=== PATIENT | female | born 1950 | race Caucasian/White ===

== ENCOUNTER 2023-03-18 06:09 | Emergency (ER) | payer MEDICARE, OTHER ==
[~2023-03-18] VITALS: Ht 162.6 cm; Wt 59.0 kg
[2023-03-18 07:50] LABS: BASOPHILS ABSOLUTE AUTO 0.05 K/mm3 (0.00-0.23); BASOPHILS PERCENT AUTO 0 % (0-2); EOSINOPHILS ABSOLUTE AUTO 0.04 K/mm3 (0.00-0.68); EOSINOPHILS PERCENT AUTO 0 % (0-6); Hematocrit 30.4 % (33.0-51.0); Hemoglobin 9.7 g/dL (11.5-16.0); IMMATURE GRAN ABSOLUTE AUTO 0.06 K/mm3 (0.00-0.10); IMMATURE GRAN PERCENT AUTO 0 % (0-1); LYMPHOCYTES ABSOLUTE AUTO 1.17 K/mm3 (0.84-5.20); LYMPHOCYTES PERCENT AUTO 9 % (21-46); MONOCYTES ABSOLUTE AUTO 0.84 K/mm3 (0.16-1.47); MONOCYTES PERCENT AUTO 6 % (4-13); Mean Corpuscular HGB 31.1 pg (26.0-34.0); Mean Corpuscular HGB Conc 31.9 g/dL (31.5-36.5); Mean Corpuscular Volume 97 fL (80-100); Mean Platelet Volume 10.4 fL (9.1-12.4); NEUTROPHILS ABSOLUTE AUTO 11.29 K/mm3 (1.96-9.15); NEUTROPHILS PERCENT AUTO 84 % (41-73); Platelet Count 299 K/mm3 (150-400); RDW Standard Deviation 46.2 fL (35.1-46.3); Red Blood Cell Count 3.12 M/mm3 (3.80-5.20); White Blood Cell Count 13.45 K/mm3 (4.00-11.30)
[2023-03-18 08:04] LABS: Bun/Creatinine Ratio 23.9 (12.0-20.0); Calcium, Blood 8.5 mg/dL (8.5-10.1); Creatinine, Blood 1.09 mg/dL (0.40-1.00); Potassium, Blood 5.9 mmol/L (3.5-5.5)
[2023-03-18 11:37] VITALS: BP 117/70
== END 2023-03-18 11:52 | disposition short-term general hospital (02) ==
LOC: ER 06:09
PROVIDERS: Emergency Medicine
DX: S72.041A Displaced fracture of base of neck of right femur, initial encounter for closed fracture (principal); S72.141A Displaced intertrochanteric fracture of right femur, initial encounter for closed fracture; S20.211A Contusion of right front wall of thorax, initial encounter; S00.83XA Contusion of other part of head, initial encounter; E87.5 Hyperkalemia; W18.30XA Fall on same level, unspecified, initial encounter; Z79.899 Other long term (current) drug therapy; Z79.82 Long term (current) use of aspirin
CPT/HCPCS: 70450; 71045; 73502; 80048; 84132; 85025; 93005; 93010; 96361; 96374; 96375; 96376; 99285-25; A9270; J1170; J1885; J1940; J7030; J7042

== ENCOUNTER → 2024-01-10 | Outpatient (CLI) | payer MEDICARE, OTHER ==
[2024-01-13 11:01] LABS: Stool Occult Bld Immuno 1 Positive (NEGATIVE); Stool Occult Bld Immuno 2 Positive (NEGATIVE); Stool Occult Bld Immuno 3 Positive (NEGATIVE)
== END | disposition home or self-care (01) ==
LOC: LAB SHORT 04:00
PROVIDERS: Registered Nurse Oncology
DX: D50.9 Iron deficiency anemia, unspecified (principal)
CPT/HCPCS: G0328

== ENCOUNTER 2024-06-24 13:09 | Day surgery (SDC) | payer MEDICARE, OTHER ==
[~2024-06-24] VITALS: Ht 165.1 cm; Wt 59.5 kg
[~2024-06-24 13:09] MED LIST: Lactated Ringer's 1,000 ML IV ONE; Lidocaine HCl 4% 5 ML SDA ONE
[2024-06-24] MEDS ORDERED: ALBU90OI INH (13:37)
[2024-06-24] MEDS ORDERED: DULO30 PO (13:38)
[2024-06-24] MEDS ORDERED: ATOR40TA PO (13:38)
[2024-06-24] MEDS ORDERED: LOW DOSE ASPIRI81 M1 PO (13:40)
[2024-06-24] MEDS ORDERED: ADVAIR HFA 230-28 GM (13:40)
[2024-06-24] MEDS ORDERED: ACET500 (13:42)
[2024-06-24] MEDS ORDERED: FERREX 150 FOR1 EACH PO (13:44)
[2024-06-24] MEDS ORDERED: VITAMIN D310 MC4 (13:44)
[2024-06-24] MEDS ORDERED: Lactated Ringer's 1,000 ML IV ONE (14:35)
[2024-06-24] MEDS ORDERED: propofoL 50 ML IV ONE (15:01)
--- NOTE | 2024-06-24 15:18 | NUR ---
06/24/24 1518 Nely Mesa PT. DENIES ANY PAIN, PT.VERBALIZES GENERALIZED DISCOMFORT ALL OVER BUT NO PAIN.
--- NOTE | 2024-06-24 15:53 | NUR ---
06/24/24 1553 Nely Mesa PER DICTATION ABORTED AT SIGMOID.
--- NOTE | 2024-06-24 16:49 | NUR ---
06/24/24 1649 Raymond Foy PT ADVISED TO MONTIOR B/P AT HOME, AND FOLLOW UP WITH PCP IF NEEDED.
[2024-06-24 16:51] VITALS: BP 122/88
== END 2024-06-24 16:49 | disposition home or self-care (01) ==
LOC: ORSCSDS 13:09
PROVIDERS: Specialist
PROC: 0DB78ZX Excision of Stomach, Pylorus, Via Natural or Artificial Opening Endoscopic, Diagnostic (ICD-10-PCS; principal; 2024-06-24 14:30)
PROC: 0DBP8ZX Excision of Rectum, Via Natural or Artificial Opening Endoscopic, Diagnostic (ICD-10-PCS; principal; 2024-06-24 14:30)
PROC: 0DB58ZX Excision of Esophagus, Via Natural or Artificial Opening Endoscopic, Diagnostic (ICD-10-PCS; principal; 2024-06-24 14:30)
PROC: 0DB98ZX Excision of Duodenum, Via Natural or Artificial Opening Endoscopic, Diagnostic (ICD-10-PCS; principal; 2024-06-24 14:30)
DX: K62.5 Hemorrhage of anus and rectum (principal); Z86.0100 Personal history of colon polyps, unspecified; R63.4 Abnormal weight loss; K29.70 Gastritis, unspecified, without bleeding; R94.8 Abnormal results of function studies of other organs and systems; K64.4 Residual hemorrhoidal skin tags; K64.8 Other hemorrhoids; K57.30 Diverticulosis of large intestine without perforation or abscess without bleeding; K26.9 Duodenal ulcer, unspecified as acute or chronic, without hemorrhage or perforation; K44.9 Diaphragmatic hernia without obstruction or gangrene; B37.81 Candidal esophagitis; K62.1 Rectal polyp; I10 Essential (primary) hypertension; F17.210 Nicotine dependence, cigarettes, uncomplicated; J44.9 Chronic obstructive pulmonary disease, unspecified; Z99.81 Dependence on supplemental oxygen; G62.9 Polyneuropathy, unspecified; Z79.82 Long term (current) use of aspirin; F41.9 Anxiety disorder, unspecified; F32.A Depression, unspecified; Z79.899 Other long term (current) drug therapy
CPT/HCPCS: 88305; 88312; 88342; J2001; J2003; J2704; J7120